=== PATIENT | female | born 1955 | race Caucasian/White ===

== ENCOUNTER → 2017-02-21 | Outpatient (CLI) | payer MEDICARE, OTHER ==
[2017-02-21 13:16] VITALS: BP 168/94; PULSE 88; RESP 16; TEMP 97.7; BMI 38.7
[2017-02-21 14:17] LABS: INR 0.9 (<1.1); Partial Thromboplastin Time 23.6 sec (22.0-30.0); Prothrombin Time 9.7 sec (9.0-12.0)
[2017-02-21 14:22] LABS: CH 30.1; CHCM 32.2; HDW 2.42; HGB 14.7 gm/dL (11.4-16.0); MCHC 31.9 g/dL (31.0-37.0); MCV 94.1 fL (80.0-100.0); Mean Platelet Volume 6.7; RBC 4.89 m/uL (3.80-5.40); RDW 14.1 % (11.5-15.5)
[2017-02-21 14:42] LABS: ALT 26 U/L (9-52); AST 22 U/L (14-36); Alkaline Phosphatase 78 U/L (38-126); Anion Gap 9 mmol/L; Blood Urea Nitrogen 14 mg/dL (7-17); Calcium 10.4 mg/dL (8.4-10.2); Carbon Dioxide 31 mmol/L (22-30); Chloride 103 mmol/L (98-107); Cholesterol 181 mg/dL (<200); Glucose 91 mg/dL (74-99); HDL Cholesterol 96 mg/dL (40-60); Iron 118 ug/dL (37-170); Magnesium 1.9 mg/dL (1.6-2.3); Non-African American GFR(MDRD) >60 (>60 ml/min/1.73 sqM); Phosphorous 3.9 mg/dL (2.5-4.5); Potassium 5.1 mmol/L (3.5-5.1); Sodium 143 mmol/L (137-145); Total Bilirubin 0.5 mg/dL (0.2-1.3); Total Protein 6.9 g/dL (6.3-8.2); Triglycerides 91 mg/dL (<150)
[2017-02-21 14:52] LABS: % Iron Saturation 29.4 % (20-50); Prealbumin 30 mg/dL (18-36); Total Iron Binding Capacity 401 ug/dL (265-497)
[2017-02-21 15:49] LABS: Vitamin B12 >1000 pg/mL (239-931)
[2017-02-21 18:11] LABS: Hemoglobin A1C 5.6 % (4.2-6.1)
[2017-02-24 14:26] LABS: Selenium 200 mcg/L (63-160)
--- NOTE | 2017-04-12 11:47 | P.PN ---
Progress Note - Text DATE OF CONSULTATION: 02/21/2017 DATE OF SERVICE: 02/21/2017 CHIEF COMPLAINT: Abdominal pain. HISTORY OF PRESENT ILLNESS: Samara Kelley is a 61-year-old female who reports having a previous band conversion to sleeve gastrectomy. At a height of 5 feet, 4-1/2 inches, her original weight was 276 pounds. Today she comes in weighing 228 pounds. She has maintained a 48-pound weight loss. Percent excess weight loss is 36%. Body mass index is reduced from 46.7 down to 38.7. Total BMI point reduction is only 8 points. She reports troubles also with her skin. She reports easy bruising as well as fatigue. Separately, she reports needing a thyroid supplement. She reports having increased appetite. Now she presents for further evaluation and management. Her personal goal is to hopefully obtain a panniculectomy as well as have correction of her epigastric discomfort. PAST MEDICAL HISTORY: 1. Morbid obesity. 2. Hypertension. 3. Depression. 4. Gastroesophageal reflux disease. 5. Seasonal allergies. 6. Hypothyroidism. 7. Neuropathy. 8. Seizure disorder. 9. Hyperlipidemia. 10. History of previous stroke. 11. Osteoarthritis. 12. History of transient ischemic attack in November 2015. 13. History of stomach ulcer. 14. Dysphagia. PAST SURGICAL HISTORY: 1. Left ankle replacement. 2. Bilateral knee replacements. 3. Bilateral knee arthroscopy. 4. Cervical C5, C6 fusion. 5. History of adjustable gastric band in 2007. 6. History of adjustable gastric band removal in February 2016. 7. History of sleeve gastrectomy in May 2016. 8. EGD with dilatation. MEDICATIONS: 1. Klonopin. 2. Lotrel. 3. Effexor. 4. Carafate. 5. Prilosec. 6. Multivitamin. 7. Claritin. 8. Levothyroxine. 9. Poyen 10. 10. Neurontin. 11. Depakote. 12. Celexa. 13. Lipitor. 14. Abilify. ALLERGIES: ERYTHROMYCIN, SULFA. SOCIAL HISTORY: Lifelong nontobacco user. FAMILY HISTORY: Pertinent for morbid obesity. REVIEW OF SYSTEMS: CONSTITUTIONAL: Highest weight of 276 pounds. [place] body weight of 144 pounds. Initial body mass is 46.7. Present weight loss of 48 pounds. Body mass index reduced to 38.7. Percent excessive weight loss of 36%. HEENT: Denies any troubles with vision or hearing. He does have dysphagia following a sleeve gastrectomy. ENDOCRINE: History of thyroid disorder. No reports of active diabetes. RESPIRATORY: No active pneumonia. Denies dyspnea on exertion. GASTROINTESTINAL: History of gastroesophageal reflux disease. Also has dysphagia as described. Personal history of a band to a sleeve gastrectomy. MUSCULOSKELETAL: Has diffuse osteoarthritis. NEURO: History of stroke. No reports of seizure disorder. PSYCH: History of bipolar disorder, also has anxiety. HEMATOLOGIC: No reports of easy bruising or bleeding. PHYSICAL EXAM: VITAL SIGNS: 97.7, 88, 16, 158/94; 5 feet 4-1/2 inches, 228 pounds. Body mass index 38.7. GENERAL: Well-developed, pleasant female in no acute distress. HEENT: No sclerae icterus. Extraocular movements grossly intact. Moist buccal mucosa. NECK: Supple without lymphadenopathy. CHEST: Nonlabored respirations. Equal bilateral excursions. CARDIOVASCULAR: Regular rate and rhythm. ABDOMEN: Soft, nondistended, nontender. Pannus extends over pubis well over 6 cm, mild hyperemia. MUSCULOSKELETAL: No clubbing, cyanosis, or edema. NEURO: No focal or lateralizing signs. PSYCH: Appropriate affect. Alert and oriented to person, place, and time. LABS: White count normal at 10. Hemoglobin normal at 14.7. Carbon dioxide elevated at 31. Calcium elevated 10.4. Hemoglobin A1c normal at 5.6. HDL elevated at 96. Thiamine elevated at 124. Vitamin B12 elevated over 1000. Vitamin D low at 26.2. Selenium also elevated at 200. STUDIES: Previous barium swallow was reviewed demonstrating restriction under GE junction. Moderate sized proximal gastric pouch. Asymmetric sleeve identified. ASSESSMENT: 1. Complications from sleeve gastrectomy. 2. History of dysphagia. 3. Morbid obesity due to excess calories. 4. History of selenium toxicity. 5. Elevated calcium. 6. Body mass index reduced from 46.7 down to 38.7. 7. Thyroid disorder. 8. Anxiety disorder. 9. Hypertension. 10. Gastroesophageal reflux disease. 11. History of neuropathy. 12. Chronic pain syndrome. 13. Fibromyalgia. 14. Panniculitis. PLAN: 1. I recommend proceeding with an upper endoscopy whereby a balloon dilatation may be of benefit. 2. With her severity of dysphagia, also recommend esophageal manometry to investigate esophageal dysmotility. 3. She has complications following her sleeve gastrectomy. She may be best suited with a revision to a Mary-en-Y gastric bypass to address the complications and risks of her sleeve. 4. Overall, no identifiable nutritional deficiencies except for vitamin D deficiency. 5. Recommend vitamin D supplement with 5000 units daily. 6. Also recommend dietary surveillance and counseling in the interim. 7. Recommend nystatin powder for panniculitis.
== END | disposition home or self-care (01) ==
LOC: BARWHC3 13:04
PROVIDERS: ATTEND Surgery Plastic and Reconstructive Surgery
DX: Z48.815 Encounter for surgical aftercare following surgery on the digestive system (principal); E66.01 Morbid (severe) obesity due to excess calories; Z68.38 Body mass index [BMI] 38.0-38.9, adult; Z98.84 Bariatric surgery status; E21.1 Secondary hyperparathyroidism, not elsewhere classified; E89.1 Postprocedural hypoinsulinemia; D50.8 Other iron deficiency anemias; E44.0 Moderate protein-calorie malnutrition; E55.9 Vitamin D deficiency, unspecified; K74.1 Hepatic sclerosis; N19 Unspecified kidney failure; K50.90 Crohn's disease, unspecified, without complications
CPT/HCPCS: 84255; 84134; 84425; 80061; 80053; 82607; 82728; 83036; 82525; 82746; 83540; 83550; 83735; 84100; 84443; 84590; 84630; 85027; 85610; 85730; 82306; 83970; G0463; 99211

== ENCOUNTER 2017-03-14 09:52 | Day surgery (SDC) | payer MEDICARE, OTHER ==
[2017-03-09 11:14] VITALS: BMI 39.1
[~2017-03-14 09:52] MED LIST: LACTATED RINGERS 1,000 ML IV SCH; LIDOCAINE 1% 20 ML VIAL (10MG/ML) FOR IV START INTRADERMA PRN
[2017-03-14 10:33] VITALS: TEMP 98.4
--- NOTE | 2017-03-14 11:00 | P.GSHP ---
History of Present Illness H&P Date: 03/14/17 CHIEF COMPLAINT: GERD HISTORY OF PRESENT ILLNESS: The patient is a 61-year-old female who presents reports gastroesophageal reflux disease. Upper endoscopy was offered for further evaluation and management. PAST MEDICAL HISTORY: Please see list. PAST SURGICAL HISTORY: Please see list. MEDICATIONS: Please see list. ALLERGIES: Please see list. SOCIAL HISTORY: No illicit drug use FAMILY HISTORY: No reports of Crohn disease or ulcerative colitis. REVIEW OF ORGAN SYSTEMS: CONSTITUTIONAL: No reports of fevers or chills. GI: Denies any blood in stools or constipation. PHYSICAL EXAM: VITAL SIGNS: Stable GENERAL: Well-developed and pleasant in no acute distress. HEENT: No scleral icterus. Extraocular movements grossly intact. Moist buccal mucosa. NECK: Supple without lymphadenopathy. CHEST: Unlabored respirations. Equal bilateral excursions. CARDIOVASCULAR: Regular rate and rhythm. Distal 2+ pulses. ABDOMEN: Soft, nondistended. MUSCULOSKELETAL: No clubbing, cyanosis, or edema. ASSESSMENT: 1. Gastroesophageal reflux disease PLAN: 1. Recommend proceeding with an upper endoscopy Past Medical History Past Medical History: CVA/TIA, GERD/Reflux, Hyperlipidemia, Hypertension, Osteoarthritis (OA), Thyroid Disorder Additional Past Medical History / Comment(s): TIA 11/2015-no residual effects. STOMACH Ulcer. GASTRIC SLEEVE 06/08/16, HAS HAD DIFF SWALLOWING. STATES HAS SOME "POCKETS ABOVE BARIATRIC SURGERY" History of Any Multi-Drug Resistant Organisms: None Reported Past Surgical History: Back Surgery, Bariatric Surgery, Joint Replacement, Orthopedic Surgery Additional Past Surgical History / Comment(s): left ankle x 9- left ankle replacement, michael knee replacements, michael knee arthroscopy, fusion C5 and C6; 2007 lap band (removed 02/28/16); Laparoscopic gastric sleeve 06/08/16. EGD W/ DILATION 07/12/16July 2016 Past Anesthesia/Blood Transfusion Reactions: No Reported Reaction Past Psychological History: Anxiety, Bipolar Smoking Status: Never smoker Past Alcohol Use History: Rare Past Drug Use History: Marijuana Additional Drug Use History / Comment(s): RARE USE OF MARIJUANA, INSTRUCTED NOT TO USE 24 HRS PRIOR - Past Family History Mother Family Medical History: Rheumatoid Arthritis (RA) Father Family Medical History: Cancer, Hypertension Additional Family Medical History / Comment(s): SKIN CANCER, CATARACTS Medications and Allergies Home Medications Medication Instructions Recorded Confirmed Type ARIPiprazole [Abilify] 20 mg PO HS 01/20/16 03/14/17 History Atorvastatin [Lipitor] 20 mg PO HS 01/20/16 03/14/17 History Citalopram Hydrobromide [CeleXA] 40 mg PO DAILY 01/20/16 03/14/17 History Divalproex ER [Depakote ER] 500 mg PO BID 01/20/16 03/14/17 History Gabapentin [Neurontin] 300 mg PO BID 01/20/16 03/14/17 History Levothyroxine Sodium [Tirosint] 100 mcg PO DAILY 01/20/16 03/14/17 History Omeprazole [PriLOSEC] 20 mg PO AC-BID 01/20/16 03/14/17 History Venlafaxine HCl [Effexor] 75 mg PO QAM 01/20/16 03/14/17 History Venlafaxine HCl [Effexor] 150 mg PO HS 01/20/16 03/14/17 History amLODIPine BESYLATE/BENAZEPRIL 1 cap PO DAILY 01/20/16 03/14/17 History [Lotrel 5-10 mg Capsule] clonazePAM [KlonoPIN] 1 mg PO TID PRN 01/20/16 03/14/17 History Multivit-Min/Iron/Folic/Lutein 1 tab PO DAILY 02/23/16 03/14/17 History [Centrum Silver Women Tablet] Loratadine [Claritin] 10 mg PO DAILY 06/08/16 03/14/17 History Cholecalciferol [Vitamin D3] 1,000 unit PO DAILY 03/09/17 03/14/17 History Cyanocobalamin (Vitamin B-12) 1,000 mcg PO DAILY 03/09/17 03/14/17 History [Vitamin B-12] Multivit-Min/Iron/Folic/Fgq265 1 each PO DAILY 03/09/17 03/14/17 History [Hair, Skin and Nails Tablet] Zinc/Magnesium/Calcium 1 tab PO DAILY 03/09/17 03/14/17 History Allergies Allergy/AdvReac Type Severity Reaction Status Date / Time erythromycin base Allergy Abdominal Verified 03/14/17 10:33 Pain Sulfa (Sulfonamide Allergy Rash/Hives Verified 03/14/17 10:33 Antibiotics) mycins Allergy Abdominal Uncoded 03/14/17 10:33 Pain Surgical - Exam Vital Signs Temp Pulse Resp BP Pulse Ox 98.4 F 65 18 134/85 94 L 03/14/17 10:32 03/14/17 10:32 03/14/17 10:32 03/14/17 10:32 03/14/17 10:32
[2017-03-14] MEDS ORDERED: LIDOCAINE 1% INJ 10MG/ML (20 ML MDV) ONE (11:04)
[2017-03-14] MEDS ORDERED: PROPOFOL 10 MG/ML 20 ML VIAL IV ONE (11:04)
[2017-03-14 11:28] VITALS: RESP 16
--- NOTE | 2017-03-14 11:28 | P.PCN ---
Date of Procedure: 03/14/17 Preoperative Diagnosis: Postoperative Diagnosis: Procedure(s) Performed: Implants: Indications for Procedure: Operative Findings: Description of Procedure: PREOPERATIVE DIAGNOSIS: Status post sleeve gastrectomy. Gastroesophageal reflux disease. Epigastric abdominal pain. Dysphagia. POSTOPERATIVE DIAGNOSIS: Status post sleeve gastrectomy. Gastroesophageal reflux disease. Epigastric abdominal pain. Dysphagia. Chronic superficial gastritis. OPERATION: Esophagogastroduodenoscopy with cold forceps biopsies along the antrum. SURGEON: Darshana Pathak MD ANESTHESIA: MAC. INDICATIONS: The patient is a 61-year-old female who presents with a history of sleeve gastrectomy with abdominal pain. Benefits and risks of the procedure were described. Informed consent was obtained. DESCRIPTION: The patient was brought into the endoscopy suite and laid in the left lateral decubitus position. An Olympus gastroscope was passed along the posterior oropharynx down to the distal esophagus where the squamocolumnar junction was at 37 centimeters from the incisors remarkable for chronic erosive esophagitis, LA grade B without ulceration. The stomach was entered moderate retained gastric fundus was identified along the superior pole of the stomach. The sleeve reservoir was narrowed along the angularis incisura creating a functional obstruction. Chronic gastritis was found along the antrum with cold biopsies obtained. The first through third portion of the duodenum was examined and unremarkable. The scope again had retroflexed along the antrum. The stomach was desufflated. The patient tolerated the procedure well. FINDINGS: No acute ulceration found along her sleeve. No corkscrewing sleeve gastrectomy. Moderate retained gastric fundus along the superior pole. Functional abnormality of sleeve with narrowing along angularis incisura. LA grade B erosive esophagitis. No active duodenitis. Chronic gastritis. RECOMMENDATIONS: Upper endoscopy as needed. Recommend revision of sleeve gastrectomy for functional and anatomical abnormality. Plan - Discharge Summary New Discharge Prescriptions: No Action amLODIPine BESYLATE/BENAZEPRIL [Lotrel 5-10 mg Capsule] 1 cap PO DAILY Levothyroxine Sodium [Tirosint] 100 mcg PO DAILY Divalproex ER [Depakote ER] 500 mg PO BID Gabapentin [Neurontin] 300 mg PO BID Citalopram Hydrobromide [CeleXA] 40 mg PO DAILY Atorvastatin [Lipitor] 20 mg PO HS Venlafaxine HCl [Effexor] 150 mg PO HS Venlafaxine HCl [Effexor] 75 mg PO QAM ARIPiprazole [Abilify] 20 mg PO HS clonazePAM [KlonoPIN] 1 mg PO TID PRN PRN Reason: Anxiety Omeprazole [PriLOSEC] 20 mg PO AC-BID Multivit-Min/Iron/Folic/Lutein [Centrum Silver Women Tablet] 1 tab PO DAILY Loratadine [Claritin] 10 mg PO DAILY Sucralfate [Carafate] 1 gm PO BID #60 tablet HYDROcodone/APAP 10-325MG [[place] 10-325] 1 tab PO Q6H PRN #28 tab PRN Reason: Pain Cholecalciferol [Vitamin D3] 1,000 unit PO DAILY Zinc/Magnesium/Calcium 1 tab PO DAILY Cyanocobalamin (Vitamin B-12) [Vitamin B-12] 1,000 mcg PO DAILY Multivit-Min/Iron/Folic/Lwz820 [Hair, Skin and Nails Tablet] 1 each PO DAILY Discharge Medication List ARIPiprazole [Abilify] 20 mg PO HS 01/20/16 [History] Atorvastatin [Lipitor] 20 mg PO HS 01/20/16 [History] Citalopram Hydrobromide [CeleXA] 40 mg PO DAILY 01/20/16 [History] Divalproex ER [Depakote ER] 500 mg PO BID 01/20/16 [History] Gabapentin [Neurontin] 300 mg PO BID 01/20/16 [History] Levothyroxine Sodium [Tirosint] 100 mcg PO DAILY 01/20/16 [History] Omeprazole [PriLOSEC] 20 mg PO AC-BID 01/20/16 [History] Venlafaxine HCl [Effexor] 75 mg PO QAM 01/20/16 [History] Venlafaxine HCl [Effexor] 150 mg PO HS 01/20/16 [History] amLODIPine BESYLATE/BENAZEPRIL [Lotrel 5-10 mg Capsule] 1 cap PO DAILY 01/20/16 [History] clonazePAM [KlonoPIN] 1 mg PO TID PRN 01/20/16 [History] Multivit-Min/Iron/Folic/Lutein [Centrum Silver Women Tablet] 1 tab PO DAILY 08/30 [History] Loratadine [Claritin] 10 mg PO DAILY 06/08/16 [History] Sucralfate [Carafate] 1 gm PO BID #60 tablet 06/08/16 [Rx] HYDROcodone/APAP 10-325MG [[place]ah 10-325] 1 tab PO Q6H PRN #28 tab 06/09/16 [Rx] Cholecalciferol [Vitamin D3] 1,000 unit PO DAILY 03/09/17 [History] Cyanocobalamin (Vitamin B-12) [Vitamin B-12] 1,000 mcg PO DAILY 03/09/17 [ History] Multivit-Min/Iron/Folic/[id number] [Hair, Skin and Nails Tablet] 1 each PO DAILY [History] Zinc/Magnesium/Calcium 1 tab PO DAILY 03/09/17 [History]
[2017-03-14 11:58] VITALS: BP 145/70; PULSE 57
== END 2017-03-14 12:28 | disposition home or self-care (01) ==
LOC: ORWHC2ENDO 09:52
PROVIDERS: ATTEND Surgery Plastic and Reconstructive Surgery
DX: K29.30 Chronic superficial gastritis without bleeding (principal); K21.0 Gastro-esophageal reflux disease with esophagitis; Z98.84 Bariatric surgery status; E78.5 Hyperlipidemia, unspecified; I10 Essential (primary) hypertension; E07.9 Disorder of thyroid, unspecified; Z86.73 Personal history of transient ischemic attack (TIA), and cerebral infarction without residual deficits; F41.9 Anxiety disorder, unspecified; F31.9 Bipolar disorder, unspecified; Z79.891 Long term (current) use of opiate analgesic; Z79.899 Other long term (current) drug therapy; Z88.1 Allergy status to other antibiotic agents; Z88.2 Allergy status to sulfonamides
CPT/HCPCS: 88305; 88342; 43239; J2001; J2704

== ENCOUNTER → 2017-05-02 | Outpatient (CLI) | payer MEDICARE ==
[2017-05-02 13:33] VITALS: BP 164/84; PULSE 52; RESP 16; TEMP 98.2; BMI 38.9
--- NOTE | 2017-05-26 19:39 | P.PN ---
Progress Note - Text DATE OF SERVICE: 05/02/2017 CHIEF COMPLAINT: Bariatric assessment. HISTORY OF PRESENT ILLNESS: Samara Kelley is a 61-year-old female who reports having a previous band conversion to sleeve gastrectomy. At a height of 5 feet, 4-1/2 inches, her original weight was 276 pounds. Today she comes in weighing 230 pounds. She has maintained a 46-pound weight loss. Percent excess weight loss is 35%. Body mass index is reduced from 46.7 down to 38.9. Total BMI point reduction is 7.8 points. She comes in with epigastric abdominal pain. She completed an upper endoscopy findings with mechanical complication of her sleeve. Now she comes in for surgical intervention with revision. PAST MEDICAL HISTORY: 1. Morbid obesity. 2. Hypertension. 3. Depression. 4. Gastroesophageal reflux disease. 5. Seasonal allergies. 6. Hypothyroidism. 7. Neuropathy. 8. Seizure disorder. 9. Hyperlipidemia. 10. History of previous stroke. 11. Osteoarthritis. 12. History of transient ischemic attack in November 2015. 13. History of stomach ulcer. 14. Dysphagia. PAST SURGICAL HISTORY: 1. Left ankle replacement. 2. Bilateral knee replacements. 3. Bilateral knee arthroscopy. 4. Cervical C5, C6 fusion. 5. History of adjustable gastric band in 2007. 6. History of adjustable gastric band removal in February 2016. 7. History of sleeve gastrectomy in May 2016. 8. EGD with dilatation. MEDICATIONS: 1. Klonopin. 2. Lotrel. 3. Effexor. 4. Carafate. 5. Prilosec. 6. Multivitamin. 7. Claritin. 8. Levothyroxine. 9. Adair 10. 10. Neurontin. 11. Depakote. 12. Celexa. 13. Lipitor. 14. Abilify. ALLERGIES: ERYTHROMYCIN, SULFA. SOCIAL HISTORY: Lifelong nontobacco user. FAMILY HISTORY: Pertinent for morbid obesity. REVIEW OF SYSTEMS: CONSTITUTIONAL: Highest weight of 276 pounds. [place] body weight of 144 pounds. Initial body mass is 46.7. Present weight loss of 46 pounds. Body mass index reduced to 38.9. Percent excessive weight loss of 35%. HEENT: Denies any troubles with vision or hearing. He does have dysphagia following a sleeve gastrectomy. ENDOCRINE: History of thyroid disorder. No reports of active diabetes. RESPIRATORY: No active pneumonia. Denies dyspnea on exertion. GASTROINTESTINAL: History of gastroesophageal reflux disease. Also has dysphagia as described. Personal history of a band to a sleeve gastrectomy. MUSCULOSKELETAL: Has diffuse osteoarthritis. NEURO: History of stroke. No reports of seizure disorder. PSYCH: History of bipolar disorder, also has anxiety. HEMATOLOGIC: No reports of easy bruising or bleeding. SKIN: No skin cancer or rash. PHYSICAL EXAM: VITAL SIGNS: 5 feet 4-1/2 inches, 230 pounds. Body mass index 38.9. Vital Signs Temp 98.2 F 05/02/17 13:30 Pulse 52 L 05/02/17 13:30 Resp 16 05/02/17 13:30 BP 164/84 05/02/17 13:30 Pulse Ox GENERAL: Well-developed, pleasant female in no acute distress. HEENT: No sclerae icterus. Extraocular movements grossly intact. Moist buccal mucosa. NECK: Supple without lymphadenopathy. CHEST: Nonlabored respirations. Equal bilateral excursions. CARDIOVASCULAR: Regular rate and rhythm. ABDOMEN: Soft, nondistended, nontender. Pannus extends over pubis well over 6 cm, mild hyperemia. MUSCULOSKELETAL: No clubbing, cyanosis, or edema. NEURO: No focal or lateralizing signs. PSYCH: Appropriate affect. Alert and oriented to person, place, and time. SKIN: Good skin turgor. Well-perfused. EGD FINDINGS: No acute ulceration found along her sleeve. No corkscrewing sleeve gastrectomy. Moderate retained gastric fundus along the superior pole. Functional abnormality of sleeve with narrowing along angularis incisura. LA grade B erosive esophagitis. No active duodenitis. Chronic gastritis. ASSESSMENT: 1. Complications from sleeve gastrectomy. 2. History of dysphagia. 3. Morbid obesity due to excess calories. 4. History of selenium toxicity. 5. Elevated calcium. 6. Body mass index reduced from 46.7 down to 38.9. 7. Thyroid disorder. 8. Anxiety disorder. 9. Hypertension. 10. Gastroesophageal reflux disease. 11. History of neuropathy. 12. Chronic pain syndrome. 13. Fibromyalgia. 14. Panniculitis. PLAN: 1. She has mechanical complications from a sleeve gastrectomy resulting in dysphasia as well as abdominal pain. Recommend surgical intervention with revision to a Mary-en-Y gastric bypass to correct her procedure. 2. As she is a revisional procudure, she is at increased risk for leaks, nutritional deficiencies, need for further surgery. 3. I have recommended robotic-assisted laparoscopic approach to increase assessment of her operation. 4. Inpatient hospitalization at least 2 or more nights reviewed. 5. Recommend avoiding aspirin and NSAIDs in the interim including postsurgical. 6. DVT prophylaxis. 7. Antibiotic prophylaxis. 8. In the interim, recommend correction of nutritional deficiencies.
== END ==
LOC: BARWHC3 13:09
PROVIDERS: ATTEND Surgery Plastic and Reconstructive Surgery
DX: Z48.815 Encounter for surgical aftercare following surgery on the digestive system (principal); E66.01 Morbid (severe) obesity due to excess calories; E83.52 Hypercalcemia; E07.9 Disorder of thyroid, unspecified; F41.9 Anxiety disorder, unspecified; I10 Essential (primary) hypertension; K21.9 Gastro-esophageal reflux disease without esophagitis; M79.7 Fibromyalgia; M79.3 Panniculitis, unspecified; Z68.38 Body mass index [BMI] 38.0-38.9, adult; Z98.84 Bariatric surgery status; Z79.899 Other long term (current) drug therapy; Z88.1 Allergy status to other antibiotic agents; Z88.2 Allergy status to sulfonamides
CPT/HCPCS: 97803; G0463; 99211

== ENCOUNTER → 2019-01-15 | Outpatient (CLI) | payer MEDICARE ==
[2019-01-15 14:22] VITALS: PULSE 83; RESP 18; TEMP 98.1; BMI 38.6
[2019-01-15 15:03] VITALS: BP 178/92
--- NOTE | 2019-01-15 15:16 | P.PN ---
Subjective Progress Note Date: 01/15/19 HPI: She comes in after 2 years. Her weight is stable. She reports chronic pain. She still reports heartburn and woke up in the middle of the night. She has regurgitation. ABDOMEN: Soft ASSESSMENT: 1. Morbid obesity 2. Complications from sleeve gastrectomy 3. Dysphagia PLAN: 1. Recommend EGD for dysphagia and dilation. 2. Bariatric labs Objective - Vital Signs Vital signs: Vital Signs Temp 98.1 F 01/15/19 14:08 Pulse 83 01/15/19 14:08 Resp 18 01/15/19 14:08 BP 178/92 01/15/19 15:02 Pulse Ox 98 01/15/19 14:08 Intake & Output 01/14/19 01/15/19 01/15/19 18:59 06:59 18:59 Weight 103.646 kg
== END | disposition home or self-care (01) ==
LOC: BARWHC3 13:14
PROVIDERS: ATTEND Surgery Plastic and Reconstructive Surgery
DX: E66.01 Morbid (severe) obesity due to excess calories (principal); K95.89 Other complications of other bariatric procedure; R13.10 Dysphagia, unspecified; Z68.38 Body mass index [BMI] 38.0-38.9, adult
CPT/HCPCS: 99211

== ENCOUNTER → 2021-03-30 | Outpatient (CLI) | payer MEDICARE, OTHER ==
[2021-03-30 13:40] VITALS: BP 168/90; PULSE 59; RESP 18; TEMP 97.1; BMI 29.9
--- NOTE | 2021-03-30 14:50 | P.HPBAR ---
Bariatric H&P - History & Physicial H&P Date: 03/30/21 History & Physicial: Visit/CC: follow up Patient initial contact: Initial weight: 123.15 kg Initial weight in pounds: 271.50 Height: 5 ft 4.5 in Initial BMI: 45.8 Last weight: Current weight: 80.286 kg Current weight in pounds: 177.00 Current BMI: 29.9 Braymer body weight (based on NIH guidelines): 55.565 kg Excess body weight loss: 63.4% The patient is a 65 year-old F who presents for Bariatric Assessment. DATE OF SERVICE: 03/30/2021 CHIEF COMPLAINT: Status post sleeve gastrectomy HISTORY OF PRESENT ILLNESS: Samara Kelley is a 65-year-old female who reports having a previous band conversion to sleeve gastrectomy, 06/08/16 from a different provider. She is 5 years out. She presents at her lowest weight. She had been lost to follow up. She barely eats. She reports history of stomach ulcers. She is pending ankle surgery this month. She is seeing a pain specialist. She reports epigastric pain. She presents in consultation for management of her abdominal pain. She comes in after 2 years her previous surgery. Her weight is stable. She reports chronic pain. She still reports heartburn and wakes up in the middle of the night. She has new regurgitation. At height of 5 feet, 4-1/2 inches, her original weight was 276 pounds. Today she comes in weighing 177 pounds from 228 pounds, 2 years ago. She has lost 51 poun ds in 2 years. Liftetime weight loss is 99 pounds. Percent excess weight loss is 75 %. Body mass index is reduced from 46.7 down to 29.9. PAST MEDICAL HISTORY: 1. Morbid obesity due to excess calories, BMI 46.7 2. Hypertension. 3. Depression. 4. Gastroesophageal reflux disease. 5. Seasonal allergies. 6. Hypothyroidism. 7. Neuropathy. 8. Seizure disorder. 9. Hyperlipidemia. 10. History of previous stroke. 11. Osteoarthritis. 12. History of transient ischemic attack in November 2015. 13. History of stomach ulcer. 14. Chronic pain syndrome. PAST SURGICAL HISTORY: 1. Left ankle replacement. 2. Bilateral knee replacements. 3. Bilateral knee arthroscopy. 4. Cervical C5, C6 fusion. 5. History of adjustable gastric band in 2007. 6. History of adjustable gastric band removal in February 2016. 7. History of sleeve gastrectomy in May 2016. 8. EGD with dilatation. MEDICATIONS: Home Medications Medication Instructions Recorded Confirmed ARIPiprazole [Abilify] 15 mg PO BID 01/20/16 04/05/21 Atorvastatin [Lipitor] 20 mg PO HS 01/20/16 04/05/21 Divalproex ER [Depakote ER] 500 mg PO BID 01/20/16 04/05/21 Levothyroxine Sodium [Tirosint] 100 mcg PO DAILY 01/20/16 04/07/21 Omeprazole [PriLOSEC] 40 mg PO AC-BID 01/20/16 04/07/21 Venlafaxine HCl [Effexor] 75 mg PO QAM 01/20/16 04/05/21 Venlafaxine HCl [Effexor] 150 mg PO QAM 01/20/16 04/05/21 clonazePAM [KlonoPIN] 1 mg PO HS 01/20/16 04/05/21 Multivit-Min/Iron/Folic/Lutein 1 tab PO DAILY 02/23/16 04/05/21 [Centrum Silver Women Tablet] Aspirin [Aspirin EC] 325 mg PO DAILY 05/02/17 04/05/21 Sucralfate [Carafate] 1 gm PO TID 01/15/19 04/07/21 clonazePAM [KlonoPIN] 0.5 mg PO DAILY PRN 01/15/19 04/07/21 Vitamin C/Biotin [Hair, Skin and 1 tab PO DAILY 03/30/21 04/07/21 Nails Chew] amLODIPine BESYLATE/BENAZEPRIL 1 cap PO DAILY 03/30/21 04/07/21 [amLODIPine BESYLATE/BENAZEPRIL 10-40 MG] fentaNYL 12MCG/HR PATCH [Duragesic 1 patch TRANSDERM Q72H 03/30/21 04/07/21 12MCG/HR] oxyCODONE-APAP 7.5-325MG [Percocet 1 tab PO Q6HR PRN 03/30/21 04/07/21 7.5-325 mg] Divalproex [Depakote] 250 mg PO HS 04/05/21 04/05/21 ALLERGIES: Allergies Allergy/AdvReac Type Severity Reaction Status Date / Time erythromycin base Allergy Abdominal Verified 04/05/21 10:24 Pain Sulfa (Sulfonamide Allergy Rash/Hives Verified 04/05/21 10:24 Antibiotics) mycins Allergy Abdominal Uncoded 04/05/21 10:24 Pain SOCIAL HISTORY: Lifelong nontobacco user. FAMILY HISTORY: Pertinent for morbid obesity. REVIEW OF SYSTEMS: CONSTITUTIONAL: Highest weight of 276 pounds. Braymer body weight of 144 pounds. Initial body mass is 46.7. HEENT: Denies any troubles with vision or hearing. He does have dysphagia following a sleeve gastrectomy. ENDOCRINE: History of hypothyroidism. Denies dyspnea on exertion. GASTROINTESTINAL: History of gastroesophageal reflux disease. Also has dysphagia as described. Personal history of a band to a sleeve gastrectomy. MUSCULOSKELETAL: Has diffuse osteoarthritis. NEURO: History of stroke. No reports of seizure disorder. PSYCH: History of bipolar disorder, also has anxiety. HEMATOLOGIC: No reports of easy bruising or bleeding. SKIN: No skin cancer or rash. PHYSICAL EXAM: VITAL SIGNS: 5 feet 4-1/2 inches, 176 pounds. Body mass index 29.9 Vital Signs Temp 97.1 F L 03/30/21 13:34 Pulse 59 L 03/30/21 13:34 Resp 18 03/30/21 13:34 BP 168/90 03/30/21 13:34 Pulse Ox GENERAL: Well-developed, pleasant female in no acute distress. HEENT: No sclerae icterus. Extraocular movements grossly intact. Moist buccal mucosa. NECK: Supple without lymphadenopathy. CHEST: Nonlabored respirations. Equal bilateral excursions. CARDIOVASCULAR: Regular rate and rhythm. ABDOMEN: Soft, nondistended, nontender. Pannus extends over pubis well over 6 cm, mild hyperemia. MUSCULOSKELETAL: No clubbing, cyanosis, or edema. NEURO: No focal or lateralizing signs. PSYCH: Appropriate affect. Alert and oriented to person, place, and time. SKIN: Good skin turgor. Well-perfused. ASSESSMENT: 1. Complications from sleeve gastrectomy. 2. History of dysphagia. 3. Morbid obesity due to excess calories. 4. History of selenium toxicity. 5. Elevated calcium. 6. Body mass index reduced from 46.7 down to 38.6 7. Thyroid disorder. 8. Anxiety disorder. 9. Hypertension. 10. Gastroesophageal reflux disease. 11. History of neuropathy. 12. Chronic pain syndrome. 13. Fibromyalgia. 14. Panniculitis. 15. Dysphagia 16. Epigastric pain PLAN: 1. Recommend upper endoscopy for dysphagia and dilation. 2. Recommend bariatric labs for nutritional deficiencies. 3. Recommend esophagram advised. 4. She is elevated risk for history of band to sleeve gastrectomy. Past Medical History Past Medical History: CVA/TIA, GERD/Reflux, Hyperlipidemia, Hypertension, Osteoarthritis (OA), Thyroid Disorder Additional Past Medical History / Comment(s): TIA 11/2015-no residual effects. STOMACH Ulcer. GASTRIC SLEEVE 06/08/16, HAS HAD DIFF SWALLOWING. STATES HAS SOME "POCKETS ABOVE BARIATRIC SURGERY", chronic neck pain (currently getting epidurals) History of Any Multi-Drug Resistant Organisms: None Reported Past Surgical History: Back Surgery, Bariatric Surgery, Joint Replacement, Orthopedic Surgery Additional Past Surgical History / Comment(s): left ankle x 9- left ankle replacement, michael knee replacements, michael knee arthroscopy, fusion C5 and C6; 2007 lap band (removed 02/28/16); Laparoscopic gastric sleeve 06/08/16. EGD W/ DILATION 07/12/16, July 2016. mulitple pain procedures to neck over the past 2 years. Past Anesthesia/Blood Transfusion Reactions: No Reported Reaction Past Psychological History: Anxiety, Bipolar Smoking Status: Never smoker Past Alcohol Use History: None Reported Past Drug Use History: Marijuana Additional Drug Use History / Comment(s): RARE USE OF MARIJUANA, INSTRUCTED NOT TO USE 24 HRS PRIOR. 03/30/21 - states smokes marijuana for pain control. ROBIN RN. - Past Family History Mother Family Medical History: Rheumatoid Arthritis (RA) Father Family Medical History: Cancer, Hypertension Additional Family Medical History / Comment(s): SKIN CANCER, CATARACTS Surgical - Exam Vital Signs Temp Pulse Resp BP 97.1 F L 59 L 18 168/90 03/30/21 13:34 03/30/21 13:34 03/30/21 13:34 03/30/21 13:34 Results - Labs 03/30/21 15:21 03/30/21 15:21 Bariatric Checklist Checklist: Plan: Checklist: EGD: 1. Hiatal hernia: 2. H. Pylori: HgbA1c: Vitamin D: Smoking: Never smoker Primary care physician referral: que collins ([place]) Psychiatry clearance: Cardiology clearance: Sleep study: Diet journal: VTE risk score: VTE risk level: Rehab needs at discharge:
[2021-03-30 15:50] LABS: HCT 40.3 % (34.0-46.0); HGB 13.5 gm/dL (11.4-16.0); MCH 30.3 pg (25.0-35.0); MCHC 33.6 g/dL (31.0-37.0); Mean Platelet Volume 7.2; Platelet Count 361 k/uL (150-450); RBC 4.47 m/uL (3.80-5.40); RDW 13.9 % (11.5-15.5); WBC 8.7 k/uL (3.8-10.6)
[2021-03-30 16:41] LABS: INR 0.9 (<1.2); Partial Thromboplastin Time 23.9 sec (22.0-30.0); Prothrombin Time 9.8 sec (9.0-12.0)
[2021-03-31 00:55] LABS: Hemoglobin A1C 5.1 % (4.0-6.0)
[2021-03-31 05:28] LABS: % Iron Saturation 15.08 (12.00-45.00); ALT 18 U/L (8-44); AST 23 U/L (13-35); African American GFR (CKD) 90.9 (60.0-200.0); Albumin/Globulin Ratio 2.47 (1.60-3.17); Alkaline Phosphatase 69 U/L (41-126); Calcium 10.3 mg/dL (8.7-10.3); Carbon Dioxide 27.9 mmol/L (21.6-31.8); Chloride 103 mmol/L (96-109); Chol/HDL Ratio 1.93; Cholesterol 185 mg/dL (0-200); Globulin 1.9 g/dL (1.6-3.3); Glucose 116 mg/dL (70-110); Iron 65 ug/dL (50-170); LDL Cholesterol,Calculated 70.6 mg/dL (0.0-131.0); Magnesium 1.9 mg/dL (1.5-2.4); Non-African American GFR(CKD) 78.5 (60.0-200.0); Phosphorus 3.8 mg/dL (2.4-5.1); Sodium 143 mmol/L (135-145); Total Bilirubin 0.3 mg/dL (0.3-1.2); Total Iron Binding Capacity 431 ug/dL (228-460); Total Protein 6.6 g/dL (6.2-8.2)
[2021-03-31 05:48] LABS: Ferritin 16.6 ng/mL (10.0-291.0); Folate, Serum >24.0 ng/mL
[2021-03-31 11:55] LABS: Zinc, Serum 76 ug/dL (60-130)
[2021-04-01 06:37] LABS: Vitamin A 69 ug/dL (38-106)
[2021-04-01 14:24] LABS: Vit B1(Thiamine) 125 ug/L (38-122)
[2021-04-04 18:09] LABS: Selenium 147 mcg/L (63-160)
== END ==
LOC: BARWHC3 13:06
PROVIDERS: ATTEND Surgery Plastic and Reconstructive Surgery
DX: E66.01 Morbid (severe) obesity due to excess calories (principal); K95.09 Other complications of gastric band procedure; E03.9 Hypothyroidism, unspecified; I10 Essential (primary) hypertension; E78.5 Hyperlipidemia, unspecified; F41.9 Anxiety disorder, unspecified; K21.9 Gastro-esophageal reflux disease without esophagitis; M79.7 Fibromyalgia; M79.3 Panniculitis, unspecified; R10.13 Epigastric pain; G89.4 Chronic pain syndrome; Z86.73 Personal history of transient ischemic attack (TIA), and cerebral infarction without residual deficits; M19.90 Unspecified osteoarthritis, unspecified site; Z86.69 Personal history of other diseases of the nervous system and sense organs; E83.52 Hypercalcemia; F31.9 Bipolar disorder, unspecified; Z88.1 Allergy status to other antibiotic agents; Z88.2 Allergy status to sulfonamides; Z68.29 Body mass index [BMI] 29.0-29.9, adult; Z79.82 Long term (current) use of aspirin; Z79.899 Other long term (current) drug therapy
CPT/HCPCS: 84255; 84134; 84425; 80061; 80053; 82607; 82728; 82525; 82746; 83540; 83550; 83735; 84100; 84443; 84590; 84630; 85027; 85610; 85730; 82306; 83970; 83036; 36415; G0463; 99211

== ENCOUNTER 2021-04-07 08:40 | Day surgery (SDC) | payer MEDICARE, OTHER ==
--- NOTE | 2021-04-07 07:54 | P.GSHP ---
History of Present Illness H&P Date: 04/07/21 CHIEF COMPLAINT: GERD HISTORY OF PRESENT ILLNESS: The patient is a 65-year-old female who presents reports gastroesophageal reflux disease. Upper endoscopy was offered for further evaluation and management. PAST MEDICAL HISTORY: Please see list. PAST SURGICAL HISTORY: Please see list. MEDICATIONS: Please see list. ALLERGIES: Please see list. SOCIAL HISTORY: No illicit drug use FAMILY HISTORY: No reports of Crohn disease or ulcerative colitis. REVIEW OF ORGAN SYSTEMS: CONSTITUTIONAL: No reports of fevers or chills. GI: Denies any blood in stools or constipation. PHYSICAL EXAM: VITAL SIGNS: Stable GENERAL: Well-developed and pleasant in no acute distress. HEENT: No scleral icterus. Extraocular movements grossly intact. Moist buccal mucosa. NECK: Supple without lymphadenopathy. CHEST: Unlabored respirations. Equal bilateral excursions. CARDIOVASCULAR: Regular rate and rhythm. Distal 2+ pulses. ABDOMEN: Soft, nondistended. MUSCULOSKELETAL: No clubbing, cyanosis, or edema. ASSESSMENT: 1. Gastroesophageal reflux disease PLAN: 1. Recommend proceeding with an upper endoscopy Past Medical History Past Medical History: CVA/TIA, GERD/Reflux, Hyperlipidemia, Hypertension, Osteoarthritis (OA), Thyroid Disorder Additional Past Medical History / Comment(s): TIA 11/2015-no residual effects. STOMACH Ulcer. GASTRIC SLEEVE 06/08/16, HAS HAD DIFF SWALLOWING. STATES HAS SOME "POCKETS ABOVE BARIATRIC SURGERY", chronic neck pain (currently getting epidurals) History of Any Multi-Drug Resistant Organisms: None Reported Past Surgical History: Back Surgery, Bariatric Surgery, Joint Replacement, Orthopedic Surgery Additional Past Surgical History / Comment(s): left ankle x 9- left ankle replacement, michael knee replacements, michael knee arthroscopy, fusion C5 and C6; 2007 lap band (removed 02/28/16); Laparoscopic gastric sleeve 06/08/16. EGD W/ DILATION 07/12/16July 2016. mulitple pain procedures to neck over the past 2 years. Past Anesthesia/Blood Transfusion Reactions: No Reported Reaction Smoking Status: Never smoker - Past Family History Mother Family Medical History: Rheumatoid Arthritis (RA) Father Family Medical History: Cancer, Hypertension Additional Family Medical History / Comment(s): SKIN CANCER, CATARACTS Medications and Allergies Home Medications Medication Instructions Recorded Confirmed Type ARIPiprazole [Abilify] 15 mg PO BID 01/20/16 04/05/21 History Atorvastatin [Lipitor] 20 mg PO HS 01/20/16 04/05/21 History Divalproex ER [Depakote ER] 500 mg PO BID 01/20/16 04/05/21 History Levothyroxine Sodium [Tirosint] 100 mcg PO DAILY 01/20/16 04/05/21 History Omeprazole [PriLOSEC] 40 mg PO AC-BID 01/20/16 04/05/21 History Venlafaxine HCl [Effexor] 75 mg PO QAM 01/20/16 04/05/21 History Venlafaxine HCl [Effexor] 150 mg PO QAM 01/20/16 04/05/21 History clonazePAM [KlonoPIN] 1 mg PO HS 01/20/16 04/05/21 History Multivit-Min/Iron/Folic/Lutein 1 tab PO DAILY 02/23/16 04/05/21 History [Centrum Silver Women Tablet] Aspirin [Aspirin EC] 325 mg PO DAILY 05/02/17 04/05/21 History Ibuprofen [Motrin] 800 mg PO QID 05/02/17 04/05/21 History Sucralfate [Carafate] 1 gm PO TID 01/15/19 04/05/21 History clonazePAM [KlonoPIN] 0.5 mg PO DAILY PRN 01/15/19 04/05/21 History Vitamin C/Biotin [Hair, Skin and 1 tab PO DAILY 03/30/21 04/05/21 History Nails] amLODIPine BESYLATE/BENAZEPRIL 1 cap PO DAILY 03/30/21 04/05/21 History [amLODIPine BESYLATE/BENAZEPRIL 10-40 MG] fentaNYL 12MCG/HR PATCH [Duragesic 1 patch TRANSDERM Q72H 03/30/21 04/05/21 History 12MCG/HR] oxyCODONE-APAP 7.5-325MG [Percocet 1 tab PO Q6HR PRN 03/30/21 04/05/21 History 7.5-325 mg] Divalproex [Depakote] 250 mg PO HS 04/05/21 04/05/21 History Allergies Allergy/AdvReac Type Severity Reaction Status Date / Time erythromycin base Allergy Abdominal Verified 04/05/21 10:24 Pain Sulfa (Sulfonamide Allergy Rash/Hives Verified 04/05/21 10:24 Antibiotics) mycins Allergy Abdominal Uncoded 04/05/21 10:24 Pain
[~2021-04-07 08:40] MED LIST changes: -LIDOCAINE 1% 20 ML VIAL (10MG/ML) FOR IV START INTRADERMA PRN
[2021-04-07 09:15] VITALS: TEMP 97.2
[2021-04-07] MEDS ORDERED: LIDOCAINE 1% (10MG/ML) FOR IV START INTRADERMA ONE (09:23)
[2021-04-07] MEDS ORDERED: fentaNYL (PF) 50 MCG/ML 2 ML AMP IV ONE (10:25)
[2021-04-07] MEDS ORDERED: LIDOCAINE 1% INJ 10MG/ML (20 ML MDV) ONE (10:47)
[2021-04-07] MEDS ORDERED: PROPOFOL 10 MG/ML 20 ML VIAL IV ONE (10:47)
[2021-04-07 11:26] VITALS: PULSE 66
--- NOTE | 2021-04-07 11:43 | P.PCN ---
Date of Procedure: 04/07/21 Description of Procedure: PREOPERATIVE DIAGNOSIS: Dysphagia Gastroesophageal reflux disease s/p sleeve gastrectomy Gastritis Epigastric abdominal pain POSTOPERATIVE DIAGNOSIS: Dysphagia Gastroesophageal reflux disease s/p sleeve gastrectomy Gastritis Epigastric abdominal pain Esophageal dysmotility OPERATION: Esophagogastroduodenoscopy with rigid dilation 54-Argentine Esophagogastroduodenoscopy with cold forceps biopsy SURGEON: Darshana Pathak MD ANESTHESIA: MAC. INDICATIONS: The patient is a 65-year-old female who presents with a history of epigastric pain, dysphagia, sleeve gastrectomy including gastroesophageal reflux disease. Benefits and risks of the procedure were described. Informed consent was obtained. DESCRIPTION: The patient was brought into the endoscopy suite and laid in the left lateral decubitus position. After a timeout was confirmed, the procedure was initiated. An Olympus gastroscope was passed along the posterior oropharynx down to the distal esophagus where the squamocolumnar junction was remarkable for stricture. Multiple tertiary esophageal contractions were identified consistent with esophageal dysmotility. No large hiatal hernias were identified. The gastric pouch was entered. No gastric strictures were identified along her sleeve. The antrum was unremarkable. The scope was removed as a guidewire was placed. A guidewire followed by a 54-Argentine rigid dilator was placed. Dilators were removed with guidewire. The upper scope was reinserted. Biopsies weith cold forceps were performed along the antrum for gastritis. The scope was easily passed without resistance consistent with her esophageal dysmotility. The mucosa was intact. No full-thickness injury was encountered. The GI tract was desufflated. The patient tolerated the procedure well. FINDINGS: Tertiary esophageal contractions present with esophageal dysmotility dilated LA grade A erosive esophagitis. No diaphragmatic hiatal hernia Rigid dilation 54-Argentine achieved Distal esophageal stenosis Moderate gastritis RECOMMENDATIONS: Upper endoscopy as needed Plan - Discharge Summary Discharge Rx Participant: No New Discharge Prescriptions: Continue Levothyroxine Sodium [Tirosint] 100 mcg PO DAILY Divalproex ER [Depakote ER] 500 mg PO BID Atorvastatin [Lipitor] 20 mg PO HS Venlafaxine HCl [Effexor] 150 mg PO QAM Venlafaxine HCl [Effexor] 75 mg PO QAM ARIPiprazole [Abilify] 15 mg PO BID clonazePAM [KlonoPIN] 1 mg PO HS Omeprazole [PriLOSEC] 40 mg PO AC-BID Multivit-Min/Iron/Folic/Lutein [Centrum Silver Women Tablet] 1 tab PO DAILY Aspirin [Aspirin EC] 325 mg PO DAILY clonazePAM [KlonoPIN] 0.5 mg PO DAILY PRN PRN Reason: Anxiety Sucralfate [Carafate] 1 gm PO TID oxyCODONE-APAP 7.5-325MG [Percocet 7.5-325 mg] 1 tab PO Q6HR PRN PRN Reason: Pain Vitamin C/Biotin [Hair, Skin and Nails] 1 tab PO DAILY fentaNYL 12MCG/HR PATCH [Duragesic 12MCG/HR] 1 patch TRANSDERM Q72H amLODIPine BESYLATE/BENAZEPRIL [amLODIPine BESYLATE/BENAZEPRIL 10-40 MG] 1 cap PO DAILY Divalproex [Depakote] 250 mg PO HS Discontinued Ibuprofen [Motrin] 800 mg PO QID Discharge Medication List ARIPiprazole [Abilify] 15 mg PO BID 01/20/16 [History] Atorvastatin [Lipitor] 20 mg PO HS 01/20/16 [History] Divalproex ER [Depakote ER] 500 mg PO BID 01/20/16 [History] Levothyroxine Sodium [Tirosint] 100 mcg PO DAILY 01/20/16 [History] Omeprazole [PriLOSEC] 40 mg PO AC-BID 01/20/16 [History] Venlafaxine HCl [Effexor] 75 mg PO QAM 01/20/16 [History] Venlafaxine HCl [Effexor] 150 mg PO QAM 01/20/16 [History] clonazePAM [KlonoPIN] 1 mg PO HS 01/20/16 [History] Multivit-Min/Iron/Folic/Lutein [Centrum Silver Women Tablet] 1 tab PO DAILY 02/23/16 [History] Aspirin [Aspirin EC] 325 mg PO DAILY 05/02/17 [History] Sucralfate [Carafate] 1 gm PO TID 01/15/19 [History] clonazePAM [KlonoPIN] 0.5 mg PO DAILY PRN 01/15/19 [History] Vitamin C/Biotin [Hair, Skin and Nails] 1 tab PO DAILY 03/30/21 [History] amLODIPine BESYLATE/BENAZEPRIL [amLODIPine BESYLATE/BENAZEPRIL 10-40 MG] 1 cap PO DAILY 03/30/21 [History] fentaNYL 12MCG/HR PATCH [Duragesic 12MCG/HR] 1 patch TRANSDERM Q72H 03/30/21 [History] oxyCODONE-APAP 7.5-325MG [Percocet 7.5-325 mg] 1 tab PO Q6HR PRN 03/30/21 [History] Divalproex [Depakote] 250 mg PO HS 04/05/21 [History] Follow up Appointment(s)/Referral(s): Darshana Pathak MD [STAFF PHYSICIAN] - As Needed Patient Instructions/Handouts: Esophageal Dilation (DC), Gastritis (DC) Discharge Disposition: HOME SELF-CARE
[2021-04-07 11:44] VITALS: BP 131/76; RESP 20
== END 2021-04-07 12:04 | disposition home or self-care (01) ==
LOC: ORWHC2ENDO 08:40
PROVIDERS: ATTEND Surgery Plastic and Reconstructive Surgery
DX: K22.2 Esophageal obstruction (principal); K29.50 Unspecified chronic gastritis without bleeding; K22.8 Other specified diseases of esophagus; Z98.84 Bariatric surgery status; Z86.73 Personal history of transient ischemic attack (TIA), and cerebral infarction without residual deficits; K21.9 Gastro-esophageal reflux disease without esophagitis; E78.5 Hyperlipidemia, unspecified; I10 Essential (primary) hypertension; M19.90 Unspecified osteoarthritis, unspecified site; E07.9 Disorder of thyroid, unspecified; F31.9 Bipolar disorder, unspecified; Z87.11 Personal history of peptic ulcer disease; G89.29 Other chronic pain; M54.2 Cervicalgia; Z96.662 Presence of left artificial ankle joint; Z96.653 Presence of artificial knee joint, bilateral; Z98.1 Arthrodesis status; Z98.890 Other specified postprocedural states; Z82.61 Family history of arthritis; Z82.49 Family history of ischemic heart disease and other diseases of the circulatory system; Z80.8 Family history of malignant neoplasm of other organs or systems; Z83.518 Family history of other specified eye disorder; Z79.890 Hormone replacement therapy; Z79.899 Other long term (current) drug therapy; Z88.1 Allergy status to other antibiotic agents; Z88.2 Allergy status to sulfonamides; Z79.82 Long term (current) use of aspirin
CPT/HCPCS: 88305; 88342; 43239; 43248; J2001; J3010; J2704; 43249

== ENCOUNTER → 2024-04-29 | Outpatient (CLI) | payer OTHER | END | disposition home or self-care (01) | LOC: LABWHC1 15:52 → EDSTATUS 15:54 | DX: S80.01XD Contusion of right knee, subsequent encounter (principal); S80.02XD Contusion of left knee, subsequent encounter; Z96.653 Presence of artificial knee joint, bilateral; X58.XXXD Exposure to other specified factors, subsequent encounter | CPT/HCPCS: 36415; 85379; 85652; 86140 ==